=== PATIENT | female | born 1945 | race Caucasian/White ===

== ENCOUNTER 2017-09-05 12:38 | Outpatient (CLI) | payer MEDICARE ==
--- NOTE | 2017-09-05 14:14 | RAD ---
AP VIEW OF THE CHEST: INDICATION: History of malignant neoplasm of the upper lobe. COMPARISON: Prior exam dated 05/30/14. FINDINGS: COPD change is similar. Patchy fibrotic change in the right upper lobe is similar. No new pulmonary nodule is evident. Cardiomediastinal silhouette is within normal limits. There is change of a prio r perivalvular repair which is stable. IMPRESSION: 1. Stable chronic obstructive pulmonary disease changes. 2. No new pulmonary nodule or pulmonary mass demonstrated. POS: CRISTY
== END 2017-09-05 12:39 | disposition home or self-care (01) ==
LOC: RAD 12:38
PROVIDERS: ATTEND Thoracic Surgery (Cardiothoracic Vascular Surgery)
DX: C34.10 Malignant neoplasm of upper lobe, unspecified bronchus or lung (principal)
CPT/HCPCS: 71045

== ENCOUNTER 2021-11-17 09:18 | Day surgery (SDC) | payer MEDICARE ==
[2021-11-13 13:33] VITALS: BMI 18.8
[2021-11-17] MEDS ORDERED: PROPOFOL 40 ML ONE (12:33)
== END 2021-11-17 14:15 | disposition home or self-care (01) ==
LOC: SDC 09:18
PROVIDERS: ATTEND Internal Medicine Cardiovascular Disease
PROC: 5A2204Z Restoration of Cardiac Rhythm, Single (ICD-10-PCS; principal; 2021-11-17)
DX: I48.19 Other persistent atrial fibrillation (principal); I47.2 Ventricular tachycardia; I49.3 Ventricular premature depolarization; I50.22 Chronic systolic (congestive) heart failure; J44.9 Chronic obstructive pulmonary disease, unspecified; E78.5 Hyperlipidemia, unspecified; E03.9 Hypothyroidism, unspecified; M19.90 Unspecified osteoarthritis, unspecified site; E89.6 Postprocedural adrenocortical (-medullary) hypofunction; Z86.718 Personal history of other venous thrombosis and embolism; Z87.891 Personal history of nicotine dependence; Z79.01 Long term (current) use of anticoagulants; Z79.82 Long term (current) use of aspirin; Z79.890 Hormone replacement therapy; Z79.899 Other long term (current) drug therapy; Z88.0 Allergy status to penicillin; Z88.1 Allergy status to other antibiotic agents; Z88.5 Allergy status to narcotic agent; Z95.2 Presence of prosthetic heart valve
CPT/HCPCS: 92960; 93005; 93010; J2704

== ENCOUNTER 2022-07-06 08:11 | Day surgery (SDC) | payer MEDICARE ==
[2022-07-05 09:59] VITALS: BMI 18.8
[2022-07-06] MEDS ORDERED: PROPOFOL 20 ML ONE (11:31)
== END 2022-07-06 12:37 | disposition home or self-care (01) ==
LOC: SDC 08:11
PROVIDERS: ATTEND Internal Medicine Cardiovascular Disease
PROC: 5A2204Z Restoration of Cardiac Rhythm, Single (ICD-10-PCS; principal; 2022-07-06)
DX: I48.4 Atypical atrial flutter (principal); I48.0 Paroxysmal atrial fibrillation; E78.5 Hyperlipidemia, unspecified; E03.9 Hypothyroidism, unspecified; J44.9 Chronic obstructive pulmonary disease, unspecified; M19.90 Unspecified osteoarthritis, unspecified site; I50.22 Chronic systolic (congestive) heart failure; I47.20 Ventricular tachycardia, unspecified; Z85.118 Personal history of other malignant neoplasm of bronchus and lung; Z86.718 Personal history of other venous thrombosis and embolism; Z87.891 Personal history of nicotine dependence; Z79.01 Long term (current) use of anticoagulants; Z79.82 Long term (current) use of aspirin; Z79.890 Hormone replacement therapy; Z79.899 Other long term (current) drug therapy; Z88.0 Allergy status to penicillin; Z88.1 Allergy status to other antibiotic agents; Z88.5 Allergy status to narcotic agent; Z95.2 Presence of prosthetic heart valve
CPT/HCPCS: 92960; 93005; 93010; J2704

== ENCOUNTER 2023-09-06 15:31 | Inpatient (IN) | payer MEDICARE ==
[2023-09-06 18:27] LABS: #Eosinphils 0.2 thou/uL (0.0-0.7); #Monocytes 0.4 thou/uL (0.11-0.59); #Neutrophils 3.7 thou/uL (1.40-6.50); %Basophils 0.6 % (0.0-1.0); %Eosinophils 3.6 % (0.0-10.0); %Lymphocytes 16.7 % (21.0-51.0); %Neutrophils 70.7 % (42.0-75.0); Hematocrit 38.9 % (36.0-47.0); Hemoglobin 12.2 g/dL (12.0-16.0); Mean Corpuscular HGB CONC 31.4 g/dL (32.0-36.0); Mean Corpuscular Hemoglobin 26.3 pg (27.0-31.0); Mean Corpuscular Volume 83.8 fl (78.0-98.0); Mean Platelet Volume 10.8 fL (7.4-10.4); Platelet Count 166 10x3/uL (130-400); RBC Distribution Width 23.9 % (11.5-14.5); Red Blood Cell (RBC) Count 4.64 mill/uL (4.20-5.40); White Blood Cell (WBC) Count 5.3 10x3/uL (4.8-10.8)
[2023-09-06 18:39] LABS: PTT 32.9 sec (22.9-36.1); Prothrombin Time 13.5 sec (12.0-14.7)
[2023-09-06 18:47] LABS: ALT (SGPT) 10 U/L (8-55); AST (SGOT) 22 U/L (5-34); Alkaline Phosphatase 71 U/L (40-110); Anion Gap 13 mmol/L (10-20); BUN (Urea Nitrogen) 23 mg/dL (9.8-20.1); Bilirubin, Total 0.4 mg/dL (0.2-1.2); Calc. Creatinine Clearance 0 mL/min (70-130); Calcium 9.4 mg/dL (7.8-10.44); Carbon Dioxide 30 mmol/L (23-31); Chloride 100 mmol/L (98-107); Estimated GFR 38; Globulin 2.9 g/dL (2.4-3.5); Glucose 87 mg/dL (83-110); Potassium 4.2 mmol/L (3.5-5.1); Protein, Total 6.9 g/dL (5.8-8.1); Sodium 139 mmol/L (136-145)
[2023-09-06] MEDS ORDERED: Ondansetron ODT 4 MG TAB PO PRN (20:31)
[2023-09-06] MEDS ORDERED: Acetaminophen 650 MG Suppository PR PRN (20:31)
[2023-09-06] MEDS ORDERED: Acetaminophen 325 MG TAB PO PRN (20:31)
[2023-09-06] MEDS ORDERED: Ondansetron PF 4 MG/2 ML Vial IVP PRN (20:31)
[2023-09-06] MEDS ORDERED: Enoxaparin 100 MG (1 mL) SYRINGE ONE (20:56)
[2023-09-06 22:05] VITALS: BMI 20.7
[2023-09-07] MEDS: Warfarin Sodium 2.5 MG TAB PO SCH ×2 (05:00→17:15)
[2023-09-07 05:32] LABS: #Eosinphils 0.2 thou/uL (0.0-0.7); #Monocytes 0.5 thou/uL (0.11-0.59); #Neutrophils 2.8 thou/uL (1.40-6.50); %Basophils 0.5 % (0.0-1.0); %Lymphocytes 20.4 % (21.0-51.0); %Monocytes 11.1 % (0.0-10.0); %Neutrophils 62.8 % (42.0-75.0); Hematocrit 36.1 % (36.0-47.0); Hemoglobin 11.3 g/dL (12.0-16.0); Mean Corpuscular HGB CONC 31.3 g/dL (32.0-36.0); Mean Corpuscular Hemoglobin 26.7 pg (27.0-31.0); Mean Corpuscular Volume 85.3 fl (78.0-98.0); Mean Platelet Volume 10.7 fL (7.4-10.4); Platelet Count 166 10x3/uL (130-400); RBC Distribution Width 23.8 % (11.5-14.5); Red Blood Cell (RBC) Count 4.23 mill/uL (4.20-5.40); White Blood Cell (WBC) Count 4.4 10x3/uL (4.8-10.8)
[2023-09-07 06:00] LABS: Anion Gap 13 mmol/L (10-20); BUN (Urea Nitrogen) 22 mg/dL (9.8-20.1); Calc. Creatinine Clearance 31 mL/min (70-130); Calcium 9.4 mg/dL (7.8-10.44); Carbon Dioxide 29 mmol/L (23-31); Chloride 103 mmol/L (98-107); Estimated GFR 43; Glucose 87 mg/dL (83-110); Sodium 141 mmol/L (136-145)
[2023-09-07] MEDS: Enoxaparin 60 MG (0.6 mL) SYRINGE SC SCH ×2 (13:30→19:44)
[2023-09-07] MEDS ORDERED: Ipratropium/Albuterol 3 ML NEB NEB PRN (16:50)
[2023-09-07] MEDS: Ipratropium/Albuterol 3 ML NEB NEB SCH (17:24)
[2023-09-07] MEDS: Mirtazapine 15 MG TAB PO SCH (19:44)
[2023-09-08 06:09] LABS: INR-International Normal Ratio 1.4; Prothrombin Time 17.6 sec (12.0-14.7)
[2023-09-08] MEDS: Levothyroxine Sodium 100 MCG TAB PO SCH (06:21)
[2023-09-08] MEDS: Amiodarone 200 MG TAB PO SCH (10:07)
[2023-09-08] MEDS: Ferrous Sulfate 325 MG TAB PO SCH (10:07)
[2023-09-08] MEDS: predniSONE 20 MG TAB PO SCH (10:07)
[2023-09-08] MEDS: Warfarin Sodium 1 MG TAB PO SCH (16:34)
[2023-09-09 06:37] LABS: #Monocytes 0.6 thou/uL (0.11-0.59); #Neutrophils 4.2 thou/uL (1.40-6.50); %Basophils 0.4 % (0.0-1.0); %Eosinophils 0.2 % (0.0-10.0); %Lymphocytes 11.7 % (21.0-51.0); %Monocytes 10.1 % (0.0-10.0); %Neutrophils 77.4 % (42.0-75.0); Hematocrit 36.3 % (36.0-47.0); Hemoglobin 11.2 g/dL (12.0-16.0); Mean Corpuscular HGB CONC 30.9 g/dL (32.0-36.0); Mean Corpuscular Hemoglobin 26.7 pg (27.0-31.0); Mean Corpuscular Volume 86.6 fl (78.0-98.0); Mean Platelet Volume 11.5 fL (7.4-10.4); Platelet Count 151 10x3/uL (130-400); RBC Distribution Width 23.9 % (11.5-14.5); Red Blood Cell (RBC) Count 4.19 mill/uL (4.20-5.40); White Blood Cell (WBC) Count 5.5 10x3/uL (4.8-10.8)
[2023-09-09 06:44] LABS: INR-International Normal Ratio 1.6; Prothrombin Time 19.1 sec (12.0-14.7)
[2023-09-09 07:09] LABS: Anion Gap 12 mmol/L (10-20); BUN (Urea Nitrogen) 20 mg/dL (9.8-20.1); Calc. Creatinine Clearance 33 mL/min (70-130); Calcium 9.3 mg/dL (7.8-10.44); Carbon Dioxide 29 mmol/L (23-31); Chloride 104 mmol/L (98-107); Estimated GFR 46; Glucose 84 mg/dL (83-110); Potassium 4.2 mmol/L (3.5-5.1); Sodium 141 mmol/L (136-145)
[2023-09-09 07:18] LABS: Free T4 (Free Thyroxine) 1.07 ng/dL (0.70-1.48)
[2023-09-09] MEDS: Amiodarone 200 MG TAB PO SCH (11:50)
[2023-09-09] MEDS ORDERED: Warfarin Sodium 2 MG TAB PO SCH (17:00)
[2023-09-09] MEDS: Warfarin Sodium 2 MG TAB PO SCH (17:23)
[2023-09-10] MEDS: Levothyroxine Sodium 112 MCG TAB PO SCH (05:17)
[2023-09-10 06:03] LABS: #Eosinphils 0.1 thou/uL (0.0-0.7); #Monocytes 0.5 thou/uL (0.11-0.59); #Neutrophils 3.9 thou/uL (1.40-6.50); %Basophils 0.4 % (0.0-1.0); %Eosinophils 2.1 % (0.0-10.0); %Monocytes 9.5 % (0.0-10.0); %Neutrophils 73.6 % (42.0-75.0); Hematocrit 36.8 % (36.0-47.0); Hemoglobin 11.4 g/dL (12.0-16.0); Mean Corpuscular Hemoglobin 26.6 pg (27.0-31.0); Mean Corpuscular Volume 85.8 fl (78.0-98.0); Mean Platelet Volume 10.9 fL (7.4-10.4); Platelet Count 147 10x3/uL (130-400); RBC Distribution Width 23.9 % (11.5-14.5); Red Blood Cell (RBC) Count 4.29 mill/uL (4.20-5.40); White Blood Cell (WBC) Count 5.3 10x3/uL (4.8-10.8)
[2023-09-10 06:17] LABS: INR-International Normal Ratio 1.8; Prothrombin Time 20.6 sec (12.0-14.7)
[2023-09-10 06:30] LABS: Anion Gap 9 mmol/L (10-20); BUN (Urea Nitrogen) 23 mg/dL (9.8-20.1); Calc. Creatinine Clearance 30 mL/min (70-130); Calcium 9.2 mg/dL (7.8-10.44); Carbon Dioxide 29 mmol/L (23-31); Chloride 103 mmol/L (98-107); Estimated GFR 42; Glucose 79 mg/dL (83-110); Potassium 4.4 mmol/L (3.5-5.1); Sodium 137 mmol/L (136-145)
[2023-09-10] MEDS: Amiodarone 200 MG TAB PO SCH (09:32)
[2023-09-10] MEDS: FLU VACC QS2023(65UP)/MF59C/PF 60 MCG/0.5 ML SYRINGE IM ONE (09:33)
[2023-09-10] MEDS: Enoxaparin 60 MG (0.6 mL) SYRINGE SC SCH (21:01)
[2023-09-11 06:50] LABS: INR-International Normal Ratio 1.9; Prothrombin Time 21.4 sec (12.0-14.7)
[2023-09-11] MEDS: Enoxaparin 60 MG (0.6 mL) SYRINGE SC SCH (08:53)
[2023-09-11 11:59] VITALS: BP 128/60; TEMP 98.2
== END 2023-09-11 13:22 | DRG 309 ==
LOC: ERS 15:31 → 2NO 19:15 → ERHOLD 19:51 → OBSVTOIN 09-07 09:34 → 2NO 09-07 12:46
PROVIDERS: ADMIT Student in an Organized Health Care Education/Training Program; ATTEND Internal Medicine
DX: I48.19 Other persistent atrial fibrillation (principal); I13.0 Hypertensive heart and chronic kidney disease with heart failure and stage 1 through stage 4 chronic kidney disease, or unspecified chronic kidney disease; I50.22 Chronic systolic (congestive) heart failure; I49.5 Sick sinus syndrome; F03.90 Unspecified dementia, unspecified severity, without behavioral disturbance, psychotic disturbance, mood disturbance, and anxiety; F41.9 Anxiety disorder, unspecified; J44.9 Chronic obstructive pulmonary disease, unspecified; N18.30 Chronic kidney disease, stage 3 unspecified; M81.0 Age-related osteoporosis without current pathological fracture; Z88.5 Allergy status to narcotic agent; Z88.1 Allergy status to other antibiotic agents; Z88.0 Allergy status to penicillin; Z88.8 Allergy status to other drugs, medicaments and biological substances; Z79.01 Long term (current) use of anticoagulants; Z79.899 Other long term (current) drug therapy; Z95.1 Presence of aortocoronary bypass graft
CPT/HCPCS: 36415; 71045; 80048; 80053; 82565; 83880; 84439; 84443; 84481; 85025; 85610; 85730; 93005; 93970; 94640; J1650; J7512; J7620

== ENCOUNTER 2024-09-07 12:25 | Inpatient (IN) | payer MEDICARE, MEDICAID ==
[~2024-09-07 12:25] MED LIST: Iopamidol 370 76% 100 ML VIAL ONE
[2024-09-07] MEDS ORDERED: methylPREDNISolone Sod Succ/PF 125 MG/2 ML VIAL ONE (13:49)
[2024-09-07] MEDS ORDERED: Ipratropium/Albuterol 3 ML NEB ONE (14:10)
[2024-09-07 14:27] LABS: #Basophils 0.03 10x3/uL (0.0-0.2); %Basophils 0.6 % (0.0-1.0); %Eosinophils 3.4 % (0.0-10.0); %Lymphocytes 8.7 % (21.0-51.0); %Monocytes 9.3 % (0.0-10.0); %Neutrophils 77.6 % (42.0-75.0); Mean Corpuscular HGB CONC 33.3 g/dL (32.0-36.0); Mean Corpuscular Hemoglobin 30.6 pg (27.0-31.0); Mean Corpuscular Volume 91.8 fL (78.0-98.0); Mean Platelet Volume 11.1 fL (7.4-10.4); Platelet Count 167 10x3/uL (130-400); RBC Distribution Width 14.1 % (11.5-14.5); Red Blood Cell (RBC) Count 4.25 mill/uL (4.20-5.40)
[2024-09-07 14:40] LABS: INR-International Normal Ratio 2.5; Prothrombin Time 27.1 sec (12.0-14.7)
[2024-09-07 14:45] LABS: ALT (SGPT) 16 U/L (Less than 34); AST (SGOT) 32 U/L (11-34); Albumin 3.7 g/dL (3.1-4.5); Alkaline Phosphatase 50 U/L (40-110); Anion Gap 11 mmol/L (10-20); BUN (Urea Nitrogen) 19 mg/dL (9.8-20.1); Bilirubin, Total 0.7 mg/dL (0.3-1.2); Calc. Creatinine Clearance 0 mL/min (70-130); Calcium 9.1 mg/dL (7.8-10.44); Carbon Dioxide 26 mmol/L (23-31); Chloride 104 mmol/L (98-107); Estimated GFR 51; Glucose 84 mg/dL (83-110); Lipase 21 U/L (8-78); Potassium 4.1 mmol/L (3.5-5.1); Protein, Total 6.7 g/dL (5.8-8.1); Sodium 137 mmol/L (136-145)
[2024-09-07 14:48] LABS: Troponin I 0.019 ng/mL (< 0.028)
[2024-09-07 15:50] LABS: Bacteria/HPF None Seen HPF (None Seen); Bilirubin Negative (Negative); Blood, Urine Trace (Negative); CAUTI Indications for Culture Dysuria,urgency,freq; Clarity Turbid (Clear); Glucose, Urine (Dipstick) Normal (Negative); Ketone, Urine Negative (Negative); Leukocyte 500 Leu/uL (Negative); Nitrite Negative (Negative); Protein, Urine (Dipstick) Negative (Neg-Trace); Specific Gravity, Urine 1.032 (1.002-1.036); Squamous Epithelial 0-3 HPF (0-3); Urobilinogen Normal mg/dL (Less than 2); WBC/HPF Greater than 50 HPF (0-3); pH, Urine 5.5 (5.0-9.0)
[2024-09-07 15:51] LABS: Urine Culture Reflex Yes Yes
[2024-09-07] MEDS ORDERED: Ondansetron PF 4 MG/2 ML Vial IVP PRN (17:26)
[2024-09-07] MEDS ORDERED: Acetaminophen 325 MG TAB PO PRN (17:26)
[2024-09-07] MEDS ORDERED: Bisacodyl 5 MG TAB PO PRN (17:28)
[2024-09-07 17:42] VITALS: BMI 18.6
[2024-09-07] MEDS: Warfarin Sodium 2.5 MG TAB PO SCH (18:31)
[2024-09-07] MEDS: Budesonide 0.5 MG/2 ML NEB INH SCH (18:31)
[2024-09-07] MEDS: Famotidine/PF 20 mg/2ml Vial SLOW IVP SCH (21:22)
[2024-09-08 04:57] LABS: #Basophils Less than 0.03 10x3/uL (0.0-0.2); #Eosinophils Less than 0.03 10x3/uL (0.0-0.7); %Basophils 0.3 % (0.0-1.0); %Lymphocytes 8.1 % (21.0-51.0); %Monocytes 2.7 % (0.0-10.0); %Neutrophils 88.6 % (42.0-75.0); Hemoglobin 13.2 g/dL (12.0-16.0); Mean Corpuscular Hemoglobin 30.6 pg (27.0-31.0); Mean Corpuscular Volume 92.6 fL (78.0-98.0); Mean Platelet Volume 11.3 fL (7.4-10.4); Platelet Count 186 10x3/uL (130-400); Red Blood Cell (RBC) Count 4.32 mill/uL (4.20-5.40)
[2024-09-08 05:08] LABS: INR-International Normal Ratio 2.7; Prothrombin Time 28.8 sec (12.0-14.7)
[2024-09-08 05:15] LABS: Anion Gap 16 mmol/L (10-20); BUN (Urea Nitrogen) 16 mg/dL (9.8-20.1); Calc. Creatinine Clearance 46 mL/min (70-130); Calcium 9.2 mg/dL (7.8-10.44); Carbon Dioxide 19 mmol/L (23-31); Chloride 106 mmol/L (98-107); Estimated GFR 69; Glucose 137 mg/dL (83-110); Potassium 4.5 mmol/L (3.5-5.1); Sodium 136 mmol/L (136-145)
[2024-09-08] MEDS: Levothyroxine Sodium 50 MCG TAB PO SCH (06:21)
[2024-09-08] MEDS: Aspirin Chewable 81 MG TAB PO SCH (07:52)
[2024-09-08] MEDS: Metoprolol Tartrate 25 MG TAB PO SCH (07:52)
[2024-09-08] MEDS: Mirabegron ER 25 MG ER.TAB PO SCH (07:53)
[2024-09-08] MEDS: Polyethylene Glycol 3350 17 GM Packet PO SCH (07:53)
[2024-09-08] MEDS: cefTRIAXone\\ROCEPHIN 1 GM in Sodium Chloride 0.9% 100 ML IVPB SCH (15:44)
[2024-09-08] MEDS: Enoxaparin 60 MG (0.6 mL) SYRINGE SC SCH (15:45)
[2024-09-08] MEDS ORDERED: Warfarin Sodium 2.5 MG TAB PO SCH (17:00)
[2024-09-08] MEDS: Albuterol 200 PUFF (6.7GM INHALER) INH SCH (19:09)
[2024-09-09] MEDS: Ipratropium/Albuterol 3 ML NEB NEB PRN (02:00)
[2024-09-09] MEDS: Levothyroxine Sodium 50 MCG TAB PO SCH (05:09)
[2024-09-09 08:56] LABS: INR-International Normal Ratio 3.9; Prothrombin Time 38.5 sec (12.0-14.7)
[2024-09-09] MEDS ORDERED: Metoprolol Tartrate 25 MG TAB PO SCH (09:00)
[2024-09-09] MEDS: Enoxaparin 60 MG (0.6 mL) SYRINGE SC SCH (09:22)
[2024-09-09] MEDS: Metoprolol Tartrate 25 MG TAB PO SCH (09:22)
[2024-09-09] MEDS: Mirabegron ER 25 MG ER.TAB PO SCH (09:22)
[2024-09-09] MEDS: Aspirin 81 mg Enteric Coated Tablet PO SCH (09:22)
[2024-09-09] MEDS: Famotidine/PF 20 mg/2ml Vial SLOW IVP SCH (09:22)
[2024-09-10 03:44] LABS: #Basophils 0.03 10x3/uL (0.0-0.2); %Basophils 0.6 % (0.0-1.0); %Eosinophils 1.8 % (0.0-10.0); %Lymphocytes 9.1 % (21.0-51.0); %Monocytes 9.9 % (0.0-10.0); Hemoglobin 11.9 g/dL (12.0-16.0); Mean Corpuscular HGB CONC 33.1 g/dL (32.0-36.0); Mean Corpuscular Hemoglobin 30.8 pg (27.0-31.0); Mean Corpuscular Volume 93.3 fL (78.0-98.0); Mean Platelet Volume 11.1 fL (7.4-10.4); Platelet Count 147 10x3/uL (130-400); RBC Distribution Width 14.1 % (11.5-14.5); Red Blood Cell (RBC) Count 3.86 mill/uL (4.20-5.40)
[2024-09-10 03:59] LABS: INR-International Normal Ratio 3.3; Prothrombin Time 33.6 sec (12.0-14.7)
[2024-09-10 04:11] LABS: Anion Gap 13 mmol/L (10-20); BUN (Urea Nitrogen) 20 mg/dL (9.8-20.1); Calc. Creatinine Clearance 48 mL/min (70-130); Calcium 8.5 mg/dL (7.8-10.44); Carbon Dioxide 22 mmol/L (23-31); Chloride 107 mmol/L (98-107); Estimated GFR 63; Glucose 69 mg/dL (83-110); Potassium 3.9 mmol/L (3.5-5.1); Sodium 138 mmol/L (136-145)
[2024-09-11 04:39] LABS: #Basophils 0.03 10x3/uL (0.0-0.2); %Basophils 0.7 % (0.0-1.0); %Eosinophils 2.4 % (0.0-10.0); %Lymphocytes 8.9 % (21.0-51.0); %Monocytes 11.8 % (0.0-10.0); %Neutrophils 75.7 % (42.0-75.0); Hematocrit 37.1 % (36.0-47.0); Hemoglobin 12.3 g/dL (12.0-16.0); Mean Corpuscular HGB CONC 33.2 g/dL (32.0-36.0); Mean Corpuscular Hemoglobin 30.4 pg (27.0-31.0); Mean Corpuscular Volume 91.6 fL (78.0-98.0); Mean Platelet Volume 11.4 fL (7.4-10.4); Platelet Count 147 10x3/uL (130-400); Red Blood Cell (RBC) Count 4.05 mill/uL (4.20-5.40)
[2024-09-11 04:47] LABS: Anion Gap 15 mmol/L (10-20); BUN (Urea Nitrogen) 13 mg/dL (9.8-20.1); Calc. Creatinine Clearance 51 mL/min (70-130); Calcium 8.6 mg/dL (7.8-10.44); Carbon Dioxide 23 mmol/L (23-31); Chloride 105 mmol/L (98-107); Estimated GFR 69; Glucose 68 mg/dL (83-110); Potassium 3.8 mmol/L (3.5-5.1); Sodium 139 mmol/L (136-145)
[2024-09-11 04:50] LABS: INR-International Normal Ratio 2.4; Prothrombin Time 26.6 sec (12.0-14.7)
[2024-09-11 19:37] LABS: INR-International Normal Ratio 2.1
[2024-09-11] MEDS: QUEtiapine 25 MG TAB PO SCH (21:01)
[2024-09-12 04:25] LABS: #Basophils Less than 0.03 10x3/uL (0.0-0.2); %Basophils 0.5 % (0.0-1.0); %Eosinophils 4.9 % (0.0-10.0); %Lymphocytes 10.5 % (21.0-51.0); %Monocytes 10.5 % (0.0-10.0); %Neutrophils 73.3 % (42.0-75.0); Hematocrit 36.5 % (36.0-47.0); Hemoglobin 12.1 g/dL (12.0-16.0); Mean Corpuscular HGB CONC 33.2 g/dL (32.0-36.0); Mean Corpuscular Hemoglobin 30.5 pg (27.0-31.0); Mean Corpuscular Volume 91.9 fL (78.0-98.0); Mean Platelet Volume 11.4 fL (7.4-10.4); Platelet Count 143 10x3/uL (130-400); RBC Distribution Width 14.1 % (11.5-14.5); Red Blood Cell (RBC) Count 3.97 mill/uL (4.20-5.40)
[2024-09-12 04:38] LABS: INR-International Normal Ratio 2.1; Prothrombin Time 23.3 sec (12.0-14.7)
[2024-09-12 04:56] LABS: Anion Gap 13 mmol/L (10-20); BUN (Urea Nitrogen) 14 mg/dL (9.8-20.1); Calc. Creatinine Clearance 47 mL/min (70-130); Calcium 8.7 mg/dL (7.8-10.44); Carbon Dioxide 24 mmol/L (23-31); Chloride 105 mmol/L (98-107); Estimated GFR 62; Glucose 79 mg/dL (83-110); Potassium 3.8 mmol/L (3.5-5.1); Sodium 138 mmol/L (136-145)
[2024-09-12] MEDS: Budesonide 0.5 MG/2 ML NEB INH SCH (18:07)
[2024-09-12] MEDS: Enoxaparin 60 MG (0.6 mL) SYRINGE SC SCH (20:23)
[2024-09-13] MEDS: Famotidine 20 MG TAB PO SCH (08:53)
[2024-09-13] MEDS: Phenazopyridine HCl 100 MG TAB PO SCH (21:43)
[2024-09-14] MEDS: Phenazopyridine HCl 100 MG TAB PO SCH (08:49)
[2024-09-14 12:36] VITALS: BP 103/55; TEMP 97.4
== END 2024-09-14 14:12 | DRG 176 ==
LOC: ERS 12:25 → 2NO 16:12
PROVIDERS: ADMIT Internal Medicine; ATTEND Hospitalist
DX: I26.99 Other pulmonary embolism without acute cor pulmonale (principal); I13.0 Hypertensive heart and chronic kidney disease with heart failure and stage 1 through stage 4 chronic kidney disease, or unspecified chronic kidney disease; I50.22 Chronic systolic (congestive) heart failure; C34.90 Malignant neoplasm of unspecified part of unspecified bronchus or lung; N39.0 Urinary tract infection, site not specified; F41.9 Anxiety disorder, unspecified; F03.90 Unspecified dementia, unspecified severity, without behavioral disturbance, psychotic disturbance, mood disturbance, and anxiety; J44.9 Chronic obstructive pulmonary disease, unspecified; N18.9 Chronic kidney disease, unspecified; E03.9 Hypothyroidism, unspecified; I48.0 Paroxysmal atrial fibrillation; Z90.710 Acquired absence of both cervix and uterus; Z98.890 Other specified postprocedural states; Z88.0 Allergy status to penicillin; Z88.8 Allergy status to other drugs, medicaments and biological substances; Z79.899 Other long term (current) drug therapy; Z79.01 Long term (current) use of anticoagulants; Z87.891 Personal history of nicotine dependence; Z79.82 Long term (current) use of aspirin
CPT/HCPCS: 36415; 71046; 71275; 80048; 80053; 81001; 83690; 83880; 84484; 85025; 85610; 85730; 87077; 87086; 87186; 87428; 93005; 93306; 93970; 94640; 96374; J0696; J1650; J2919; J3490; J7620; J7626; Q9967